=== PATIENT | female | born 1950 | race Caucasian/White ===

== ENCOUNTER 2019-01-23 06:55 | Day surgery (SDC) | payer MEDICARE, OTHER ==
[~2019-01-23] VITALS: Ht 177.8 cm; Wt 80.2 kg
[~2019-01-23 06:55] MED LIST: CLOP75TA35 PO; METO-136 PO; PRAV20TA60 PO
[2019-01-23] MEDS ORDERED: METF500T PO (08:24)
[2019-01-23] MEDS ORDERED: METO50TA16 PO (08:24)
[2019-01-23] MEDS ORDERED: LISI1TAB9 PO (08:24)
[2019-01-23] MEDS ORDERED: AMOX-420 PO (08:25)
[2019-01-23] MEDS ORDERED: LIDOcaine 1% 30ml preserv. free vial IJ STA (08:26)
[2019-01-23 08:38] VITALS: BP 169/74
[2019-01-23 09:24] VITALS: BP 173/79
[2019-01-23 09:29] VITALS: BP 156/63
[2019-01-23 09:49] VITALS: BP 144/64
== END 2019-01-23 09:55 | disposition home or self-care (01) ==
LOC: SSTAY O 06:55
PROVIDERS: ATTEND Radiology Vascular & Interventional Radiology
DX: R59.1 Generalized enlarged lymph nodes (principal); I10 Essential (primary) hypertension; E11.9 Type 2 diabetes mellitus without complications; Z98.890 Other specified postprocedural states; Z79.899 Other long term (current) drug therapy; Z85.79 Personal history of other malignant neoplasms of lymphoid, hematopoietic and related tissues
CPT/HCPCS: 10005; 87070; J3490; 38505; 76942; 88173; 88305

== ENCOUNTER 2019-07-02 15:20 | Inpatient (IN) | payer MEDICARE, OTHER ==
[~2019-07-02] VITALS: Ht 177.8 cm; Wt 172.1 kg
[~2019-07-02 15:20] MED LIST changes: +AMOX-420 PO; -CLOP75TA35 PO; +LISI1TAB32 PO; +METF500T PO; -METO-136 PO; +METO50TA16 PO
--- NOTE | 2019-07-02 15:45 | NUR ---
RADIOLOGY AT BEDSIDE.
[2019-07-02 16:23] LABS: BASOPHILS # (AUTO) 0.1 X10'3 (0-0.2); BASOPHILS % (AUTO) 0.7 % (0-1); EOSINOPHILS # (AUTO) 0.3 X10'3 (0-0.9); EOSINOPHILS % (AUTO) 2.1 % (0-6); HEMATOCRIT 43.5 % (35.0-45.0); HEMOGLOBIN 14.3 g/dl (12.0-16.0); LYMPHOCYTES # (AUTO) 2.1 X10'3 (1.1-4.8); LYMPHOCYTES % (AUTO) 16.5 % (21-51); MEAN CORPUSCULAR HEMOGLOBIN 27.4 PG (27.0-31.0); MEAN CORPUSCULAR HGB CONC 32.9 g/dL (33.0-36.5); MEAN CORPUSCULAR VOLUME 83.3 FL (78-98); MEAN PLATELET VOLUME 10.4 FL (7.4-10.4); MONOCYTES # (AUTO) 1.2 X10'3 (0-0.9); MONOCYTES % (AUTO) 9.5 % (2-12); NEUTROPHILS # (AUTO) 8.9 X10'3 (1.8-7.7); NEUTROPHILS % (AUTO) 71.2 % (42-75); PLATELET COUNT 221 X10'3 (140-440); RED BLOOD COUNT 5.23 X10'6 (4.20-5.60); RED CELL DISTRIBUTION WIDTH 13.7 % (11.5-14.5); WHITE BLOOD COUNT 12.5 X10'3 (4.5-11.0)
[2019-07-02] MEDS ORDERED: fentaNYL/PF 50MCG/1 ML 2ML syringe IV ONE (16:30)
--- NOTE | 2019-07-02 16:34 | NUR ---
FENTANYL 50MCG GIVEN INSTEAD OF 100MCG PER DR. TEMPLETON'S VERBAL ORDER.
--- NOTE | 2019-07-02 16:35 | NUR ---
DR PRESTON AT BEDSIDE AT THIS TIME TO PERFORM CHEST TUBE INSERTION, PATIENT AWAKE, ALERT, NO SIGNS OF DISTRESS NOTED, AT BEDSIDE, PATIENT POSITIONED PROPERLY FOR PROCEDURE.
[2019-07-02 16:36] LABS: ALANINE AMINOTRANSFERASE 26 U/L (12-78); ALBUMIN/GLOBULIN RATIO 1.2 (1.1-1.5); ALKALINE PHOSPHATASE 77 IU/L (46-116); ANION GAP 11 (8-16); ASPARTATE AMINO TRANSFERASE 12 U/L (10-37); BILIRUBIN,TOTAL 0.3 MG/DL (0.1-1.0); BLOOD UREA NITROGEN 9 MG/DL (7-18); BUN/CREATININE RATIO 11.3 (6.6-38.0); CALCIUM 9.2 MG/DL (8.5-10.1); CHLORIDE 99 MMOL/L (99-107); GLUCOSE 111 MG/DL (70-104); POTASSIUM 3.8 MMOL/L (3.5-5.1); SODIUM 135 MMOL/L (135-145); TOTAL CARBON DIOXIDE 25.5 MMOL/L (24-32); TOTAL PROTEIN 7.3 G/DL (6.4-8.2); eGFR 72 ML/MIN
[2019-07-02] MEDS ORDERED: LIDOcaine 1% w/epiNEPHrine 1:200,000 30ml vial SQ ONE (16:40)
[2019-07-02 16:41] LABS: PARTIAL THROMBOPLASTIN TIME 30 SECONDS (22-32)
--- NOTE | 2019-07-02 16:45 | NUR ---
DR PRESTON AT BEDSIDE TO NUMB CHEST TUBE INSERTION SITE AT THIS TIME. HR 81, RR, 13, SPO2 97% ON ROOM AIR, BP 160/79. PATIENT TOLERATING WELL, AT BEDSIDE.
--- NOTE | 2019-07-02 17:08 | NUR ---
Dr Pennington spoke with Dr Peres to perform chest tube insertion in IR, MD agreed, patient returned to position of comfort, verbalized understanding, at bedside.
--- NOTE | 2019-07-02 17:30 | NUR ---
Pt picked up by RN and left to IR.
[2019-07-02 17:45] VITALS: BP 145/68
[2019-07-02 17:50] VITALS: BP 180/81
[2019-07-02 17:58] VITALS: BP 173/70
[2019-07-02 18:05] VITALS: BP 167/75
[2019-07-02] MEDS ORDERED: MULT-933 PO (18:14)
[2019-07-02] MEDS ORDERED: LISI-600 PO (18:14)
[2019-07-02] MEDS ORDERED: METF500T PO (18:14)
[2019-07-02] MEDS ORDERED: HCTZ25T (18:14)
[2019-07-02] MEDS ORDERED: ASPI81TA52 PO (18:14)
--- NOTE | 2019-07-02 18:46 | NUR ---
SLIGHT SOB, BUT STATES MUCH BETTER THAN EARLIER. NO RESPIRATORY DISTRESS NOTED.
--- NOTE | 2019-07-02 18:50 | NUR ---
Pt has returned from interventional radiology. New CT noted to R upper chest, dressing CDI. Pt is not in distress at this time.
[2019-07-02] MEDS ORDERED: HYDROcodone/acetaminophen 10/325mg tab PO PRN (19:40)
[2019-07-02] MEDS ORDERED: magnesium hydroxide 30ml (MOM) UD suspension PO PRN (19:40)
[2019-07-02] MEDS ORDERED: ondansetron/PF 4mg/2ml inj IV PRN (19:40)
[2019-07-02] MEDS ORDERED: HYDROcodone/acetaminophen 5mg/325mg tablet PO PRN (19:40)
[2019-07-02] MEDS ORDERED: mag hydrox/Alum hydrox/simeth 30ml oral suspension PO PRN (19:40)
[2019-07-02 19:57] LABS: HEMOGLOBIN A1C 6.2 % (4.5-6.2)
[2019-07-02] MEDS: heparin, porcine 5000 units/ml vial SQ SCH (20:05)
[2019-07-02] MEDS: metoprolol tartrate 25mg tablet PO SCH (20:06)
[2019-07-02] MEDS: acetaminophen 325mg tablet PO PRN (20:07)
[2019-07-02] MEDS ORDERED: METF-436 PO (20:14)
[2019-07-02] MEDS ORDERED: metFORMIN 500mg tablet PO SCH (21:00)
[2019-07-02] MEDS ORDERED: LISI1TAB32 PO (21:49)
[2019-07-03] VITALS: BP 172/66
[2019-07-03 04:46] LABS: BASOPHILS # (AUTO) 0.1 X10'3 (0-0.2); BASOPHILS % (AUTO) 0.5 % (0-1); EOSINOPHILS # (AUTO) 0.3 X10'3 (0-0.9); EOSINOPHILS % (AUTO) 2.5 % (0-6); HEMOGLOBIN 12.8 g/dl (12.0-16.0); LYMPHOCYTES # (AUTO) 1.7 X10'3 (1.1-4.8); MEAN CORPUSCULAR HEMOGLOBIN 27.3 PG (27.0-31.0); MEAN CORPUSCULAR HGB CONC 32.9 g/dL (33.0-36.5); MEAN CORPUSCULAR VOLUME 83.1 FL (78-98); MEAN PLATELET VOLUME 10.6 FL (7.4-10.4); MONOCYTES % (AUTO) 8.9 % (2-12); NEUTROPHILS # (AUTO) 8.1 X10'3 (1.8-7.7); NEUTROPHILS % (AUTO) 73.1 % (42-75); PLATELET COUNT 187 X10'3 (140-440); RED BLOOD COUNT 4.69 X10'6 (4.20-5.60); WHITE BLOOD COUNT 11.1 X10'3 (4.5-11.0)
[2019-07-03 05:51] LABS: LARGE PLATELETS FEW; PLATELET ESTIMATE NORMAL
--- NOTE | 2019-07-03 06:12 | NUR ---
Problems reprioritized. Patient report given, questions answered & plan of care reviewed with TAYO Hartley. Addendum: 07/03/19 at 0612 by Sigrid Pittman RN Amended: Links added.
--- NOTE | 2019-07-03 06:30 | NUR ---
Patient in room [facility]. I have received report from Nicolette CR and had the opportunity to ask questions and assume patient care. Pt is in bed awake watching tv,all needs met at this time. will continue to monitor.
[2019-07-03] MEDS: lisinopril 10 MG tablet PO SCH (07:17)
[2019-07-03] MEDS: metoprolol tartrate 25mg tablet PO SCH ×2 (07:18→20:11)
[2019-07-03] MEDS: multivitamins, therapeutics tablet PO SCH (07:18)
[2019-07-03] MEDS: acetaminophen 325mg tablet PO PRN ×3 (07:18→20:13)
[2019-07-03] MEDS: heparin, porcine 5000 units/ml vial SQ SCH ×2 (07:19→20:08)
[2019-07-03 08:00] VITALS: BP 163/64
[2019-07-03] MEDS ORDERED: HYDROchlorothiazide 12.5mg capsule PO SCH (08:00)
[2019-07-03] MEDS ORDERED: atorvastatin 10mg tablet PO SCH (08:00)
[2019-07-03] MEDS ORDERED: lisinopril 20mg tablet PO SCH (08:00)
[2019-07-03] MEDS ORDERED: metFORMIN 500mg tablet PO SCH (08:00)
[2019-07-03] MEDS ORDERED: aspirin 81mg tablet.DR PO SCH (08:00)
[2019-07-03] MEDS ORDERED: dextrose ORAL solution 15 GM/59 ML bottle PO PRN ×2 (08:25)
[2019-07-03] MEDS ORDERED: MESSAGE TO PHARMACY PO ONE (08:25)
[2019-07-03] MEDS ORDERED: dextrose 50%-water 50ml dispensing syringe IV PRN ×2 (08:25)
[2019-07-03] MEDS ORDERED: insulin Lispro (HumaLOG) vial - multi-dose SQ SCH (08:25)
[2019-07-03] MEDS ORDERED: glucagon, human recombinant 1mg kit SUBCUT PRN (08:25)
--- NOTE | 2019-07-03 10:01 | NUR ---
DM consult: Patient's A1c is 6.2; DM ed not warranted at this time. Noted that patient's current wt is documented as 7.91 kg resulting in BMI of 2.5, RN informed of inaccurate documentation of weight. Patient with a documented wt of 80.2 kg in January of this year, likely wt intended to be documented as 79.1 kg this visit which would result in an appropriate BMI of 25. Will continue to follow. Addendum: 07/03/19 at [address] Amended: Links added.
--- NOTE | 2019-07-03 11:29 | NUR ---
F/u: Patient's new documented wt is 172.1 kg. Per RN patient's wt is actually 172.1 lbs (78.23 kg). Updated BMI is 24.9. Addendum: 07/03/19 at [address] Amended: Links added.
--- NOTE | 2019-07-03 18:47 | NUR ---
Patient in room [facility]. I have received report from Imelda CR and had the opportunity to ask questions and assume patient care.
[2019-07-03] MEDS ORDERED: HYDROchlorothiazide 12.5mg capsule PO ONE (19:05)
[2019-07-03 20:00] VITALS: BP 146/52
[2019-07-03] MEDS: aspirin 81mg tablet.DR PO SCH (20:10)
[2019-07-03] MEDS: atorvastatin 10mg tablet PO SCH (20:13)
[2019-07-03] MEDS: insulin glargine (Lantus) pen - multi-dose SQ SCH (21:00)
[2019-07-03 23:49] VITALS: BP 142/56
[2019-07-04 05:23] LABS: BASOPHILS % (AUTO) 0.6 % (0-1); EOSINOPHILS # (AUTO) 0.3 X10'3 (0-0.9); EOSINOPHILS % (AUTO) 3.7 % (0-6); HEMATOCRIT 38.4 % (35.0-45.0); HEMOGLOBIN 12.9 g/dl (12.0-16.0); LYMPHOCYTES # (AUTO) 1.8 X10'3 (1.1-4.8); LYMPHOCYTES % (AUTO) 24.3 % (21-51); MEAN CORPUSCULAR HGB CONC 33.6 g/dL (33.0-36.5); MEAN CORPUSCULAR VOLUME 83.3 FL (78-98); MEAN PLATELET VOLUME 11.2 FL (7.4-10.4); MONOCYTES # (AUTO) 0.9 X10'3 (0-0.9); MONOCYTES % (AUTO) 11.3 % (2-12); NEUTROPHILS # (AUTO) 4.6 X10'3 (1.8-7.7); NEUTROPHILS % (AUTO) 60.1 % (42-75); PLATELET COUNT 190 X10'3 (140-440); RED BLOOD COUNT 4.61 X10'6 (4.20-5.60); RED CELL DISTRIBUTION WIDTH 13.7 % (11.5-14.5); WHITE BLOOD COUNT 7.6 X10'3 (4.5-11.0)
[2019-07-04] MEDS: acetaminophen 325mg tablet PO PRN ×2 (05:25→19:49)
--- NOTE | 2019-07-04 06:05 | NUR ---
Patient in room [facility]. I have received report from TAYO Trujillo and had the opportunity to ask questions and assume patient care.
--- NOTE | 2019-07-04 06:21 | NUR ---
Problems reprioritized. Patient report given, questions answered & plan of care reviewed with Stephanie CR.
[2019-07-04 07:13] LABS: LARGE PLATELETS FEW; PLATELET ESTIMATE NORMAL
[2019-07-04 07:23] VITALS: BP 141/51
[2019-07-04] MEDS: HYDROchlorothiazide 25mg tablet PO SCH (07:35)
[2019-07-04] MEDS: multivitamins, therapeutics tablet PO SCH (07:36)
[2019-07-04] MEDS: lisinopril 10 MG tablet PO SCH (07:36)
[2019-07-04] MEDS: heparin, porcine 5000 units/ml vial SQ SCH ×2 (07:37→19:53)
--- NOTE | 2019-07-04 09:00 | NUR ---
Not covering patients sugar of 214 because she had regular sugar in her coffee right before the blood sugar check at 0700. The patients Ha1C is 6.2 and the patient hasn't met protocol yet. Will be re-checked at 1200.
--- NOTE | 2019-07-04 11:30 | NUR ---
Patient now has pleurovac instead of the small collection chamber she originally had. HARSHIL Carvalho helped me swap to pleurovac and add to suction.
[2019-07-04 11:31] VITALS: BP 184/64
[2019-07-04] MEDS: metoprolol tartrate 25mg tablet PO SCH ×2 (11:38→19:51)
[2019-07-04 14:20] VITALS: BP 158/52
--- NOTE | 2019-07-04 17:55 | NUR ---
Problems reprioritized. Patient report given, questions answered & plan of care reviewed with TAYO Prieto.
[2019-07-04 19:00] VITALS: BP 166/59
--- NOTE | 2019-07-04 19:06 | NUR ---
Patient in room [facility]. I have received report from Stephanie CR and had the opportunity to ask questions and assume patient care.
[2019-07-04] MEDS: atorvastatin 10mg tablet PO SCH (19:51)
[2019-07-04] MEDS: aspirin 81mg tablet.DR PO SCH (19:51)
[2019-07-04] MEDS: insulin glargine (Lantus) pen - multi-dose SQ SCH (21:00)
[2019-07-05] VITALS: BP 158/69
[2019-07-05 04:57] LABS: BASOPHILS # (AUTO) 0.1 X10'3 (0-0.2); BASOPHILS % (AUTO) 0.8 % (0-1); EOSINOPHILS # (AUTO) 0.4 X10'3 (0-0.9); EOSINOPHILS % (AUTO) 5.3 % (0-6); HEMATOCRIT 40.3 % (35.0-45.0); HEMOGLOBIN 13.7 g/dl (12.0-16.0); LYMPHOCYTES # (AUTO) 2.1 X10'3 (1.1-4.8); LYMPHOCYTES % (AUTO) 29.3 % (21-51); MEAN CORPUSCULAR HGB CONC 34.1 g/dL (33.0-36.5); MEAN CORPUSCULAR VOLUME 82.3 FL (78-98); MEAN PLATELET VOLUME 10.1 FL (7.4-10.4); MONOCYTES # (AUTO) 0.9 X10'3 (0-0.9); MONOCYTES % (AUTO) 12.1 % (2-12); NEUTROPHILS # (AUTO) 3.8 X10'3 (1.8-7.7); NEUTROPHILS % (AUTO) 52.5 % (42-75); PLATELET COUNT 194 X10'3 (140-440); RED CELL DISTRIBUTION WIDTH 13.9 % (11.5-14.5); WHITE BLOOD COUNT 7.2 X10'3 (4.5-11.0)
--- NOTE | 2019-07-05 05:39 | NUR ---
patient awake alot of this shift. Told staff she had alot on her mind and that she managed to sleep only three hours. patient not wanting any assistance from staff. Chest tube remains to low suction, minimal drainage. will continue to monitor.
--- NOTE | 2019-07-05 05:42 | NUR ---
Problems reprioritized. Patient report given, questions answered & plan of care reviewed with Leigh CR.
[2019-07-05 07:00] VITALS: BP 157/56
--- NOTE | 2019-07-05 07:04 | NUR ---
CLAMPED CHEST TUBE
[2019-07-05 07:23] VITALS: BP_SYST 157
[2019-07-05] MEDS: multivitamins, therapeutics tablet PO SCH (07:23)
[2019-07-05] MEDS: lisinopril 10 MG tablet PO SCH (07:23)
[2019-07-05] MEDS: HYDROchlorothiazide 25mg tablet PO SCH (07:23)
[2019-07-05] MEDS: heparin, porcine 5000 units/ml vial SQ SCH (07:24)
[2019-07-05] MEDS: metoprolol tartrate 25mg tablet PO SCH (07:25)
--- NOTE | 2019-07-05 10:26 | NUR ---
Problems reprioritized. Patient report given, questions answered & plan of care reviewed with BE CR.
--- NOTE | 2019-07-05 13:26 | NUR ---
REVIEWED DISCHARGE PAPERWORK WITH PT. EDUCATION GIVEN ON SMOKING CESSATION, PNEUMOTHORAX, POST PROCEDURAL CARE (CHEST TUBE REMOVAL) AND DIABETES. PT. AWARE TO RETURN TO ER IF ANY SYMPTOMS RETURN. SHE IS AWARE NOT TO REMOVE OCCLUSIVE DRESSING ON HER CHEST FOR 48 HOURS OR TO GET IT WET. SHE IS AWARE NOT TO FLY IN AN AIRPLANE OR GO SCUBA DIVING. PT STATES SHE WILL STOP SMOKING. IV DC'D, PRESSURE BANDAGE APPLIED, NO S/SX BLEEDING NOTED. ID WRISTBAND REMOVED. PT. DRESSED HERSELF IN HER CLOTHES AND GATHERED ANY SMALL BELONGINGS SHE HAD TO TAKE WITH HER. HER ARRIVED TO GIVE HER A RIDE IN HIS PRIVATE VEHICLE AND THEY WERE BOTH ESCORTED BY A HOSPITAL VOLUNTEER TO DOWNSTAIRS. PT. IS AWARE TO F/U WITH HER PCP IN ONE WEEK AND ALREADY HAS AN APPOINTMENT MADE.
== END 2019-07-05 13:26 | disposition home or self-care (01) | DRG 201 ==
LOC: ER 15:21 → SUR 3N 21:57 → CMPBEDREQ 22:05 → SUR 3N 22:25
PROVIDERS: ADMIT Internal Medicine; ATTEND Family Medicine
PROC: 0W9930Z Drainage of Right Pleural Cavity with Drainage Device, Percutaneous Approach (ICD-10-PCS; principal; 2019-07-02)
DX: J93.83 Other pneumothorax (principal); J98.2 Interstitial emphysema; E78.5 Hyperlipidemia, unspecified; F17.210 Nicotine dependence, cigarettes, uncomplicated; E11.51 Type 2 diabetes mellitus with diabetic peripheral angiopathy without gangrene; I10 Essential (primary) hypertension; Z85.72 Personal history of non-Hodgkin lymphomas; Z90.710 Acquired absence of both cervix and uterus; Z79.84 Long term (current) use of oral hypoglycemic drugs; Z71.6 Tobacco abuse counseling; Z79.82 Long term (current) use of aspirin; Z92.21 Personal history of antineoplastic chemotherapy; Z95.820 Peripheral vascular angioplasty status with implants and grafts
CPT/HCPCS: 32551; 36415; 71045; 77012; 80053; 82948; 83036; 84484; 85025; 85610; 85730; 87081; 93005; 96374; 99285; G0378; J1644; J1815; J3010